=== PATIENT | male | born 1950 | race Caucasian/White ===

== ENCOUNTER 2016-09-02 17:49 | Inpatient (IN) | payer OTHER ==
[~2016-09-02] VITALS: Ht 180.3 cm; Wt 109.5 kg
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
[2016-09-02 19:12] LABS: BASOPHIL % 0.1 %; HEMATOCRIT 37.9 % (37.0-53.0); HEMOGLOBIN 12.8 g/dL (11.0-16.0); IMMATURE GRANULOCYTE # 0.1 K/uL (0.0-0.3); IMMATURE GRANULOCYTE % 0.6 %; LYMPHOCYTE # 0.8 K/uL (0.8-4.0); LYMPHOCYTE % 6.2 %; MCHC 33.8 gm/dL (32.0-36.5); MCV 94.8 fl (83.0-98.0); MONOCYTE # 1.3 K/uL (0.0-1.0); MONOCYTE % 9.3 %; MPV 10.8 fl (9.4-12.4); NEUTROPHIL # (ANC) 11.4 K/uL (1.4-9.0); NEUTROPHIL % 83.8 %; NRBC % 0 /100WBC (0-0.00); PLATELET COUNT 197 K/uL (150-450); RDW-CV 12.8 % (11.9-14.6); WBC 13.6 K/uL (4.0-11.0)
[2016-09-02 19:28] LABS: PROTIME 10.7 SECONDS (9.6-11.1); PTT 29 SECONDS (25-32)
[2016-09-02 19:39] LABS: ALBUMIN 3.6 gm/dL (3.5-5.0); ALK PHOS 105 IU/L (33-138); ALT 114 IU/L (12-78); ANION GAP 18.1 (10.0-19.0); AST 141 IU/L (10-40); BLOOD UREA NITROGEN 41 mg/dL (6-24); CALCIUM 8.2 mg/dL (8.5-10.5); CHLORIDE 100 mMol/L (96-110); CO2 20 mMol/L (22-32); CREATININE 2.1 mg/dL (0.6-1.3); ESTIMATED GFR (MDRD EQUATION) 32; POTASSIUM 5.1 mMol/L (3.7-5.1); SODIUM 133 mMol/L (135-145); TOTAL BILIRUBIN 1.3 mg/dL (0.0-1.5); TOTAL PROTEIN 7.6 g/dL (6.0-8.4)
[2016-09-02 19:47] LABS: CPK 5739 IU/L (35-332)
[2016-09-02 21:28] LABS: BILIRUBIN URINE NEGATIVE (NEGATIVE); BLOOD URINE 150 /UL (NEGATIVE); COLOR URINE YELLOW (YELLOW); GLUCOSE URINE NEGATIVE (NEGATIVE); KETONE URINE NEGATIVE (NEGATIVE); LEUKOCYTES URINE NEGATIVE /UL (NEGATIVE); NITRITE URINE NEGATIVE (NEGATIVE); PROTEIN URINE 30 mg/dL (NEGATIVE); SPEC GRAVITY URINE 1.015 (1.003-1.035); TURBIDITY URINE CLEAR (CLEAR); UROBILINOGEN URINE NORMAL (NORMAL)
[2016-09-02 21:40] LABS: BACTERIA URINE MANY (NEGATIVE); EPITHELIAL URINE 0-2 #/HPF (NEGATIVE); WBC URINE 0-2 #/HPF (NEGATIVE)
[2016-09-02 21:51] LABS: AMPHETAMINE NEGATIVE (NEGATIVE); BARBITURATE NEGATIVE (NEGATIVE); COCAINE NEGATIVE (NEGATIVE); OPIATES POSITIVE (NEGATIVE)
[2016-09-02] MEDS ORDERED: DITROPAN5 MG PO (23:18)
[2016-09-02] MEDS ORDERED: LIPITOR80 MG PO (23:18)
[2016-09-02] MEDS ORDERED: ZYLOPRIM100 MG PO (23:19)
[2016-09-02] MEDS ORDERED: TYLENOL325 MG PO (23:19)
[2016-09-02] MEDS ORDERED: PRINIVIL (ZESTRI5 MG PO (23:19)
[2016-09-02] MEDS ORDERED: ASPIRIN LO-DOSE81 MG PO (23:21)
[2016-09-02] MEDS ORDERED: CENTRUM SILVER1 EAC5 PO (23:21)
[2016-09-04 04:33] LABS: BASOPHIL # 0.1 K/uL (0.0-0.2); BASOPHIL % 0.4 %; EOSINOPHIL # 0.1 K/uL (0.0-0.5); EOSINOPHIL % 0.9 %; HEMATOCRIT 33.8 % (37.0-53.0); HEMOGLOBIN 11.2 g/dL (11.0-16.0); IMMATURE GRANULOCYTE # 0.1 K/uL (0.0-0.3); IMMATURE GRANULOCYTE % 0.5 %; LYMPHOCYTE # 0.9 K/uL (0.8-4.0); LYMPHOCYTE % 7.4 %; MCH 32.7 pg (27.0-34.0); MCHC 33.1 gm/dL (32.0-36.5); MCV 98.5 fl (83.0-98.0); MONOCYTE % 8.6 %; MPV 10.9 fl (9.4-12.4); NEUTROPHIL # (ANC) 9.8 K/uL (1.4-9.0); NEUTROPHIL % 82.2 %; NRBC % 0 /100WBC (0-0.00); PLATELET COUNT 167 K/uL (150-450); RBC 3.43 M/uL (3.50-5.50); RDW-CV 13.1 % (11.9-14.6); WBC 11.9 K/uL (4.0-11.0)
[2016-09-04 04:47] LABS: ALBUMIN 3.2 gm/dL (3.5-5.0); ANION GAP 13.6 (10.0-19.0); CALCIUM 8.4 mg/dL (8.5-10.5); CREATININE 1.7 mg/dL (0.6-1.3); POTASSIUM 4.6 mMol/L (3.7-5.1)
[2016-09-06] MEDS ORDERED: BETAPACE (GENER80 MG PO (11:51)
[2016-09-06] MEDS ORDERED: PERCOCET 5-3251 EACH PO (11:52)
[2016-09-06] MEDS ORDERED: SENOKOT-S TABL1 EACH PO (11:55)
== END 2016-09-06 14:00 | disposition disaster alternative care site (69) | DRG 184 ==
LOC: GACC 17:49 → GPCU 20:03
PROVIDERS: Emergency Medicine; Physician Assistant; ADMIT Surgery
DX: S22.43XA Multiple fractures of ribs, bilateral, initial encounter for closed fracture (principal); S27.0XXA Traumatic pneumothorax, initial encounter; S22.079A Unspecified fracture of T9-T10 vertebra, initial encounter for closed fracture; I48.0 Paroxysmal atrial fibrillation; T79.7XXA Traumatic subcutaneous emphysema, initial encounter; S01.01XA Laceration without foreign body of scalp, initial encounter; Z87.891 Personal history of nicotine dependence; I10 Essential (primary) hypertension; M10.9 Gout, unspecified; E78.5 Hyperlipidemia, unspecified; F10.10 Alcohol abuse, uncomplicated; Z95.1 Presence of aortocoronary bypass graft; I25.10 Atherosclerotic heart disease of native coronary artery without angina pectoris; V58.5XXA Driver of pick-up truck or van injured in noncollision transport accident in traffic accident, initial encounter; E66.9 Obesity, unspecified; I25.2 Old myocardial infarction; Z79.82 Long term (current) use of aspirin; Z68.34 Body mass index [BMI] 34.0-34.9, adult
CPT/HCPCS: G0480; J1170; J1650; J2270; J7030; J7040; Q9967

== ENCOUNTER 2016-09-24 19:47 | Emergency (ER) | payer OTHER ==
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
[~2016-09-24 19:47] MED LIST: ASPIRIN LO-DOSE81 MG PO; BETAPACE (GENER80 MG PO; CENTRUM SILVER1 EAC5 PO; DITROPAN5 MG PO; LIPITOR80 MG PO; PERCOCET 5-3251 EACH PO; PRINIVIL (ZESTRI5 MG PO; SENOKOT-S TABL1 EACH PO; TYLENOL325 MG PO; ZYLOPRIM100 MG PO
[2016-09-24 20:39] LABS: BASOPHIL % 0.6 %; EOSINOPHIL # 0.3 K/uL (0.0-0.5); EOSINOPHIL % 4.8 %; HEMATOCRIT 35.6 % (37.0-53.0); HEMOGLOBIN 11.6 g/dL (11.0-16.0); IMMATURE GRANULOCYTE % 0.1 %; LYMPHOCYTE # 1.1 K/uL (0.8-4.0); LYMPHOCYTE % 15.5 %; MCH 31.6 pg (27.0-34.0); MCHC 32.6 gm/dL (32.0-36.5); MONOCYTE # 0.5 K/uL (0.0-1.0); MONOCYTE % 6.5 %; MPV 11.3 fl (9.4-12.4); NEUTROPHIL # (ANC) 5.2 K/uL (1.4-9.0); NEUTROPHIL % 72.5 %; NRBC % 0 /100WBC (0-0.00); RBC 3.67 M/uL (3.50-5.50); RDW-CV 11.9 % (11.9-14.6); WBC 7.1 K/uL (4.0-11.0)
[2016-09-24 20:41] LABS: PLATELET COUNT 214 K/uL (150-450)
[2016-09-24 20:57] LABS: ALBUMIN 3.2 gm/dL (3.5-5.0); CALCIUM 9.2 mg/dL (8.5-10.5); CREATININE 1.4 mg/dL (0.6-1.3); TOTAL BILIRUBIN 0.6 mg/dL (0.0-1.5); TOTAL PROTEIN 7.1 g/dL (6.0-8.4)
== END 2016-09-24 21:24 | disposition disaster alternative care site (69) ==
LOC: GMED 19:47
PROVIDERS: Emergency Medicine
DX: R63.0 Anorexia (principal); E78.00 Pure hypercholesterolemia, unspecified; I10 Essential (primary) hypertension; E66.9 Obesity, unspecified; I25.10 Atherosclerotic heart disease of native coronary artery without angina pectoris; Z88.0 Allergy status to penicillin

== ENCOUNTER → 2016-09-25 | Outpatient (CLI) | payer OTHER | END | disposition disaster alternative care site (69) | LOC: GRAD 11:38 | DX: Z47.89 Encounter for other orthopedic aftercare (principal); S22.079D Unspecified fracture of T9-T10 vertebra, subsequent encounter for fracture with routine healing; M25.78 Osteophyte, vertebrae; X58.XXXD Exposure to other specified factors, subsequent encounter ==

== ENCOUNTER → 2016-12-03 | Outpatient (CLI) | payer OTHER | END | disposition disaster alternative care site (69) | LOC: GRAD 11:27 | DX: M84.48XD Pathological fracture, other site, subsequent encounter for fracture with routine healing (principal) ==

== ENCOUNTER → 2017-02-04 | Outpatient (CLI) | payer OTHER | END | disposition disaster alternative care site (69) | LOC: GRAD 11:19 | DX: Z47.89 Encounter for other orthopedic aftercare (principal); M41.9 Scoliosis, unspecified; M25.78 Osteophyte, vertebrae ==